=== PATIENT | female | born 1970 | race Two or more races ===

== ENCOUNTER 2019-05-21 08:54 | Outpatient (CLI) | payer OTHER | END 2019-05-21 08:58 | disposition home or self-care (01) | LOC: SONOGRAMA 08:54 | DX: E04.1 Nontoxic single thyroid nodule (principal) ==

== ENCOUNTER 2019-11-01 10:17 | Day surgery (SDC) | payer OTHER | END 2019-11-01 14:15 | disposition home or self-care (01) | LOC: AMB-ENDOS 10:17 | DX: K62.89 Other specified diseases of anus and rectum (principal); N80.5 Endometriosis of intestine; N80.1 Endometriosis of ovary; N80.0 Endometriosis of uterus; Z12.11 Encounter for screening for malignant neoplasm of colon ==